=== PATIENT | male | born 1980 | race Caucasian/White ===

== ENCOUNTER 2017-10-29 21:39 | Emergency (ER) | payer OTHER ==
[~2017-10-29] VITALS: Ht 180.3 cm; Wt 77.1 kg
[~2017-10-29 21:39] MED LIST: GABAPENTIN 100100 MG PO; HYDROCODON-ACE1 EAC7 PO; TRAMADOL 50 MG50 MG PO
[2017-10-29] MEDS ORDERED: IBUPROFEN 800800 M1 PO (23:43)
[2017-10-29] MEDS ORDERED: NORCO 5-325 TA1 EACH PO (23:43)
[2017-10-30 00:10] VITALS: BP 112/70
== END 2017-10-30 00:10 | disposition home or self-care (01) ==
LOC: M.ERS 21:39
DX: S20.211A Contusion of right front wall of thorax, initial encounter (principal); M54.2 Cervicalgia; G62.9 Polyneuropathy, unspecified; X50.1XXA Overexertion from prolonged static or awkward postures, initial encounter; Y93.89 Activity, other specified; Y92.89 Other specified places as the place of occurrence of the external cause; Y99.8 Other external cause status

== ENCOUNTER 2018-02-03 19:19 | Inpatient (IN) | payer OTHER ==
[~2018-02-03] VITALS: Ht 180.3 cm; Wt 84.5 kg
--- NOTE | 2018-02-03 | NUR ---
PATIENT ARRIVED TO ICU @ 2305. RECIEVED BEDSIDE REPORT FROM JUANA. PT ABLE TO COMMUNICATE. HAS PERIODS OF BLINKING, STARING INTO SPACE W/ JERKING/TWITCHING MOVEMENTS. NEURO CONSULTED. ORDERS RECIEVED. PT DENIES PAIN. SEIZURE PADS IN PLACE. BED TO LOWEST POSITION. SPOKE WITH JERRY. VOICED UNDERSTANDING NO FURTHER CONCERNS AT THIS TIME. WILL CONTINUE TO MONITOR PT CLOSELY.
[2018-02-03 02:00] VITALS: BP 112/67
[~2018-02-03 19:19] MED LIST changes: +IBUPROFEN 800800 M1 PO; +NORCO 5-325 TA1 EACH PO
[2018-02-03 19:23] VITALS: BP 143/95
[2018-02-03] MEDS ORDERED: NEURONTIN600 MG PO (19:34)
[2018-02-03 19:51] LABS: ABSOLUTE EOSINOPHILS 0.1 thou/uL (0.0-0.7); ABSOLUTE LYMPHOCYTES 2.2 thou/uL (0.8-5.3); ABSOLUTE MONOCYTES 0.7 thou/uL (0.0-1.2); ABSOLUTE NEUTROPHILS 5.9 thou/uL (1.6-8.1); BASOPHILS 0.5 %; EOSINOPHILS 1.2 %; HEMATOCRIT 41.9 % (42.0-52.0); HEMOGLOBIN 14.2 gm/dL (14.0-18.0); LYMPHOCYTES 24.9 %; MCHC 33.9 g/dL (28.0-37.0); MCV 88.5 fL (80.0-100.0); MONOCYTES 7.4 %; MPV 7.7 fl. (7.2-11.1); NUCLEATED RBCS 0 /100WBC; PLATELET COUNT* 253 thou/uL (150-400); RBC 4.73 mil/uL (4.50-6.00); WBC 8.9 thou/uL (4.0-11.0)
[2018-02-03 20:03] LABS: URINE BILIRUBIN NEGATIVE (Negative); URINE BLOOD NEGATIVE (Negative); URINE CLARITY CLEAR; URINE COLOR YELLOW; URINE GLUCOSE-RANDOM NEGATIVE (Negative); URINE KETONES 1+ (Negative); URINE LEUKOCYTES-REFLEX NEGATIVE (Negative); URINE NITRITE-REFLEX NEGATIVE (Negative); URINE PROTEIN NEGATIVE (Negative); URINE UROBILINOGEN 0.2 E.U./dl (0.2-1.0)
[2018-02-03 20:12] LABS: AMP/METHAMP Negative (Negative); BARBITURATES Negative (Negative); BENZODIAZEPINES Negative (Negative); COCAINE Negative (Negative); METHADONE Negative (Negative); OPIATES Negative (Negative); PCP Negative (Negative); THC POSITIVE (Negative)
[2018-02-03 20:21] LABS: ALBUMIN 4.6 g/dL (3.4-5.0); CREATININE 0.9 mg/dL (0.6-1.3); POTASSIUM 3.5 mmol/L (3.5-5.1); TOTAL BILIRUBIN 0.4 mg/dL (<0.1-1.0); TOTAL PROTEIN 7.7 g/dL (6.4-8.2)
[2018-02-03 20:45] VITALS: BP 132/78
[2018-02-03 21:27] VITALS: BP 125/82
[2018-02-03 22:50] VITALS: BP 135/86
[2018-02-03 23:05] VITALS: BP 117/76
[2018-02-04] VITALS (13 sets, daily range): BP systolic 91–117; BP diastolic 48–76
--- NOTE | 2018-02-04 00:03 | NUR ---
RECEIVED REPORT FROM LABEL REWINDER AND ASSUMED CARE OF PATIENT AT 2044. ADMISSION AND ASSESSMENT COMPLETED CHARTED, VSS. PATIENT A&OX4. PATIENT ON ROOM AIR WITH O2 SATS >92%. PATIENT NOTED TO HAVE WHOLE BODY INVOLUNTARY TWITCHES WITH EPISODES OF INABILITY TO COMMUNICATE AND EYES SLIGHTLY ROLLING TO BACK OF HEAD. THESE EPISODES WERE ONLY LASTING A FEW SECONDS BUT OCCURRING LESS THAN A MINUTE APART. DR. LOMAS NOTIFIED AND THIS WAS COMMUNICATED TO HIM. ORDERS RECIEVED FOR NEUROLOGY CONSULT IN AM AND PO LORAZEPAM. ORDERS CLARIFIED AND ENTERED. AFTER PO LORAZEPAM ADMINISTERED, AT 2244 PATIENT BEGAN HAVING A GRAND MAL SEIZURE. RAPID RESPONSE CALLED. PATIENT ROLLED TO HIS SIDE, O2 AT 7L PLACED, AND SUCTION PROVIDED. AIRWAY MAINTAINED DURING SEIZURE LASTING APPROXIMATELY 3 MINUTES LONG. PATIENT POSTICTAL DURING TRANSFER TO ICU, HOWEVER, PATIENT BECAME MORE ALERT AND RESPONSIVE AFTER PATIENT WAS SETTLED IN ICU BED. REPORT GIVEN TO STRING WINDING MACHINE OPERATORDWAYNE.
[2018-02-04 00:33] LABS: CHOLESTEROL 153 mg/dL (<200); HDL CHOLESTEROL 49 mg/dL (>40); LDL CHOLESTEROL 99 mg/dL (<100); TC:HDL 3.1 Ratio (Not establshd); TRIGLYCERIDE 25 mg/dL (<150); VLDL 5 mg/dL (<40)
[2018-02-04 00:36] LABS: SERUM ASSESSMENT CLEAR
[2018-02-04 00:49] LABS: CALCIUM 8.8 mg/dL (8.5-10.1); PHOSPHORUS* 3.2 mg/dL (2.5-4.9)
--- NOTE | 2018-02-04 06:36 | NUR ---
PATIENT PROGRESSING TOWARDS GOALS. NO ACTIVE SEIZURE ACTIVITY AT THIS TIME. VS WNL. ON 2L O2 SAT 100. PT IS COMPLAINING HEADACHE. PAGED ORDERS RECEIVED. SEIZURE PADS IN PLACE. BED TO LOWEST POSITION. NO OTHER COMPLAINS AT THIS TIME. PT HAS SCHEDULED EEG AND MRI OF HEAD W/ OUT CONTRAST THIS A.M.
--- NOTE | 2018-02-04 09:00 | NUR ---
PT TO MRI ACCOMPANIED BY MRI AND NURSING STAFF AT 0900.
[2018-02-04 10:24] LABS: APTT 25.5 Seconds (25.0-31.3); INR 1.1; PROTIME 10.3 Seconds (9.20-11.50)
--- NOTE | 2018-02-04 11:26 | CON ---
[address] [address] CONSULTATION Name: PATRICIO DUFFY Room: [address] IN M.R.#: [id number] Admission: 02/03/18 Attend Phys: Henrry Thakkar, Discharge: Date of : 84 Report #: [id number] THIS REPORT FOR: //name// CC: Gaudencio Thakkar DATE OF SERVICE: 02/04/2018 HISTORY OF PRESENT ILLNESS: This is a 38-year-old male patient who was evaluated by me for seizure. The patient was at home. He was not feeling well. He was feeling dizzy and was having some headache. The was getting ready to take him to the Emergency Room, but then the patient had an episode of syncope where he just fell down and passed out. He was admitted from Emergency Room. I reviewed the patient's Emergency Room draft there and the information I have from that is that the patient states he fainted at 1800. The patient remembers fainting, but does not remember the timing. After he got admitted, he had a grand mal seizure. He said he was having some episode where he was having some speech difficulty, but then he will become better and he does not remember anything about the grand mal seizure. He was given a gram of Keppra and he has not had any further seizure. REVIEW OF SYSTEMS: Indicate that this patient has a history of meningitis. In fact, I had seen this patient the last time he was here in 06/2017 and as my notes indicated, I have recommended that he have a followup with ID as well as a repeat interval spinal tap in few months. He said he did not follow up with anybody. He did not have any symptoms either between June and now. 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 He never was IV drug abuser. He has used some drugs long time ago, but presently he smokes marijuana sometimes, but does not use any drugs. He works and is having some headache now, but he has not had much headache before. He did have a headache the last time he was here. This was the relevant 14-point review of system. PAST MEDICAL HISTORY: Positive for meningitis. FAMILY HISTORY: Negative for any early age stroke. SOCIAL HISTORY: He smokes. PHYSICAL EXAMINATION: Indicate he is alert. He is responsive. He can tell me what month it is, who the president is and what hospital he is in. His cranial nerve examination 2-12 was mostly unremarkable. Neuromuscular examination is mostly unremarkable. When I flex his neck, he does complain of some pain, but he is not a complainer, so he may be underestimating his pain. He has no respiratory difficulty. He [place] [address] CONSULTATION Name: PATRICIO DUFFY Room: [address] IN .R.#: [id number] Admission: 02/03/18 Attend Phys: Henrry Thakkar, Discharge: Date of : 84 Report #: [id number] IMPRESSION: I am concerned with this patient because he had three spinal taps, which is abnormal and in fact his WBC count was the highest in the last spinal tap and now he is having seizure. I believe he needs extensive workup. Unfortunately, he did not follow up as recommended in my last notes when he was here in June and he did not have any outpatient followup with any Infectious Disease or for that matter any clinical consultant, the best I can tell from him. I discussed his options with him. I discussed with him that I would like to do the MRI with and without contrast. This is because the etiology of his symptoms is not clear and I hate to miss a lesion in the posterior fossa, which may be contraindication for spinal tap or any other lesions, which may not show by enhancement. I discussed the potential side effect of contrast with him including the catastrophic dermatological side effect, which are rare, but are untreatable and permanent. His kidney function is normal. He wants to proceed with MRI of the brain with contrast, and we will go ahead and schedule that. I will leave him on [facility]. I consulted ID and I think he needs a repeat spinal tap and addressing his anti-hepatitis C antibodies. We will see what to say and if he has a spinal tap, then we should send an extensive workup including MENDY level even if it is not that accurate. All of it was discussed with the patient in detail and he understands. He understands his options and alternative and he wants to follow the plan. I also discussed with him the importance of compliance and consequences of noncompliance and stressed the importance of following up as recommended as an outpatient. this addendum is added at the time of signing this note. After dictating this note I discussed the patient with ID and subsequently with the nurses and talked to the patient again. ID wanted to proceed with spinal tap and I agreed with that and ordered that. I discussed indication potential complication and alternating of spinal tap with the patient before ordering that. MRI of the brain appear unremarkable. We need to await the results of spinal tap to decide what further treatment need to be done. All of it was discussed with the patient in detail on multiple visits with him. Patient was discussed with night nurse as well as the nurse this morning. More than 70 minutes of time was spent taking care of this patient today and majority of that time was spent counseling the patient and coordinating his care but talking to other health childcare attendant <ELECTRONICALLY SIGNED> By: Omer Mead MD 02/04/18 1126 [id number] [id number] Mead MD /nt
[2018-02-04 11:48] LABS: CSF GLUCOSE 63 mg/dl (40-70); CSF PROTEIN 36.9 mg/dl (15-45)
[2018-02-04 12:44] LABS: CSF CLARITY CLEAR; CSF COLOR COLORLESS; CSF WBC 2 /mm3 (0-10); VOLUME 13 ml
[2018-02-04 12:45] LABS: CSF RBC 64 /mm3
--- NOTE | 2018-02-04 14:47 | EKG ---
[place] [address] ELECTROCARDIOGRAM REPORT Name: PATRICIO DUFFY Room: [address] IN .R.#: [id number] Admission: 02/03/18 Attend Phys: Henrry Thakkar, Discharge: Date of : 84 Report #: [id number] THIS REPORT FOR: //name// [facility] ED Test Date: 2018-02-03 Test Time: 19:39:44 Pat Name: PATRICIO PULIDO Department: Room: Gender: M [employer] Nursery: : [id number] Requested By: Angle Wakefield Order Number: [id number] MD: Jt Willis Measurements Intervals [place] Rate: 73 P: 61 OR: 147 QRS: 37 QRSD: 82 T: 47 QT: 400 QTc: 441 Interpretive Statements Sinus rhythm Consider left ventricular hypertrophy Baseline wander in lead(s) V2,V3,V4,V6 No previous ECG available for comparison Electronically Signed On 02-04-2018 14:47:39 CDT by Jt Willis [email or web address] <ELECTRONICALLY SIGNED> By: Jt Willis MD, [facility] 02/04/18 1447 38 38 Jt Willis MD, [facility] /EPI
--- NOTE | 2018-02-04 19:17 | NUR ---
PT HAD EEG, MRI AND LP TODAY. ASSESSMENT CHARTED. VSS THROUGHOUT THE DAY. PT HAD 2X EMESIS AFTER MRI WITH CONTRAST. HEADACHE PAIN RATED 8/10 RELIEVED WITH PRN HYDROCODONE AND TORODOL. NO OTHER COMPLAINTS OF PAIN THROUGHOUT THE DAY. NO SEIZURE LIKE ACTIVITY REPORTED OR OBSERVED TODAY.
--- NOTE | 2018-02-04 20:09 | NUR ---
ASSUMED CARE OF PT FROM OFELIA BERRIOS. PT IN BED EYES CLOSED. RESPONDS TO VOICE, DROWSY, ORIENTED TO PALCE AND MONTH, CONFUSED ON YEAR. BED RAILS PADDED D/T SEIZURE PRECAUTIONS. IVF INFUSING PIV L AC, MINIMAL PINK LEAKAGE NOTED ON TEGDERM, NON PAINFUL, NON TENDER. PT DENIES ANY HEADACHE AT THIS TIME. EQUAL STRENGTH NOTED BILAT, LUNGS CTA, ON ROOM AIR
[2018-02-05] VITALS: BP 92/52
[2018-02-05 03:42] LABS: HEMATOCRIT 33.7 % (42.0-52.0); MCH 30.2 pg (26.0-34.0); RBC 3.78 mil/uL (4.50-6.00); RDW-CV 13.1 % (10.5-14.5); WBC 4.3 thou/uL (4.0-11.0)
[2018-02-05 03:54] LABS: HEMOGLOBIN 11.4 gm/dL (14.0-18.0)
[2018-02-05 04:11] LABS: CALCIUM 8.3 mg/dL (8.5-10.1); CREATININE 0.8 mg/dL (0.6-1.3); MAGNESIUM 2.2 mg/dL (1.8-2.4); POTASSIUM 3.8 mmol/L (3.5-5.1); TOTAL BILIRUBIN 0.2 mg/dL (<0.1-1.0); TOTAL PROTEIN 5.4 g/dL (6.4-8.2)
--- NOTE | 2018-02-05 05:32 | NUR ---
PT TRANSFERRED UP TO ROOM 205 FROM ICU THIS MORNING AT APPROXIMATELY 0015; VSS, DROWSEY BUT ORIENTED X4, DENIED NEED FOR PAIN MEDICATION. SEIZURE PRECAUTIONS MAINTAINED. HE IS ABLE TO COMMUNICATE HIS NEEDS TO STAFF EFFECTIVELY. HE HAS DENIED THE NEED FOR PAIN MEDICATION UP TO THIS TIME. NUMEROUS LAB RESULTS PENDING RELATED TO ID.
[2018-02-05 08:22] VITALS: BP 114/70
[2018-02-05 11:18] VITALS: BP 113/74
--- NOTE | 2018-02-05 13:57 | NUR ---
Pt is A&O. Resides at home with his and kids. Normally active and independent. No DME. No hx of HH or SNF. Goal is to return home at dc. Following for dc needs.
[2018-02-05 15:24] VITALS: BP 125/72
--- NOTE | 2018-02-05 18:06 | NUR ---
ASSUMED CARE OF PATIENT AFTER REPORT THIS MORNING. PATIENT AWAKE, ALERT, AND ORIENTED APPROPRIATELY. PHYSICAL ASSESSMENT COMPLETED AND CHARTED. COMPLAINS OF PAIN. GIVEN PRN AND SCHEDULED MEDICATIONS, SEE EMAR FOR DOCUMENTATION. VITAL SIGNS STABLE. OXYGEN SATURATION WITHIN NORMAL LIMITS ON ROOM AIR. PATIENT IS STAND BY ASSIST WITH BATHROOM PRIVELEGES. USES CALL LIGHT APPROPRIATELY. SEIZURE PRECAUTIONS IN PLACE. DENIES NEEDS AT THIS TIME. CALL LIGHT WITHIN REACH. NURSING WILL CONTINUE TO MONITOR.
[2018-02-05 20:00] VITALS: BP 124/84
[2018-02-06] VITALS: BP 117/74
[2018-02-06 04:00] VITALS: BP 127/77
[2018-02-06 05:27] LABS: ABSOLUTE EOSINOPHILS 0.2 thou/uL (0.0-0.7); ABSOLUTE LYMPHOCYTES 1.7 thou/uL (0.8-5.3); ABSOLUTE MONOCYTES 0.5 thou/uL (0.0-1.2); ABSOLUTE NEUTROPHILS 3.1 thou/uL (1.6-8.1); BASOPHILS 0.4 %; EOSINOPHILS 3.3 %; HEMATOCRIT 34.7 % (42.0-52.0); HEMOGLOBIN 11.9 gm/dL (14.0-18.0); MCH 30.9 pg (26.0-34.0); MCHC 34.3 g/dL (28.0-37.0); MONOCYTES 8.7 %; MPV 8.5 fl. (7.2-11.1); NUCLEATED RBCS 0 /100WBC; PLATELET COUNT* 201 thou/uL (150-400); POLYS 56.6 %; RBC 3.86 mil/uL (4.50-6.00); RDW-CV 13.2 % (10.5-14.5); WBC 5.4 thou/uL (4.0-11.0)
[2018-02-06 05:44] LABS: ALBUMIN 2.9 g/dL (3.4-5.0); CALCIUM 8.2 mg/dL (8.5-10.1); CREATININE 0.8 mg/dL (0.6-1.3); POTASSIUM 4.2 mmol/L (3.5-5.1); TOTAL BILIRUBIN 0.1 mg/dL (<0.1-1.0); TOTAL PROTEIN 5.7 g/dL (6.4-8.2)
[2018-02-06 08:20] VITALS: BP 123/77
--- NOTE | 2018-02-06 10:19 | NUR ---
Assumed care of patient after report this morning. Patient awake, alert, and oriented appropriately. Physical assessment completed and as charted. Vital signs stable. Oxygen saturation within normal limits on room air. Complained of pain. Given scheduled and PRN medications, see emar for documentation. Patient transfers and ambulates with assistance from or staff. Uses call light appropriately, within reach. Denies needs at this time. Nursing will continue to monitor.
[2018-02-06 11:54] VITALS: BP 123/89
--- NOTE | 2018-02-06 14:26 | NUR ---
RECEIVED ORDERS TO TRANSFER PATIENT TO ROOM 110 ON JOINT & SPINE UNIT. PATIENT NOTIFIED AND COMPLIANT. SALINE LOCKED PER ORDERS AND GIVEN TYLENOL FOR HEADACHE PAIN, SEE EMAR FOR DOCUMENTATION. FINISHING ACYCLOVIR INFUSION THEN WILL TRANSFER PATIENT TO ROOM 110. REPORT GIVEN TO AGUSTINA GREER.
[2018-02-06 15:13] VITALS: BP 118/84
--- NOTE | 2018-02-06 15:14 | NUR ---
PATIENT ADMITTED TO ROOM 110 FROM TELE, PATIENT ALERT/ORIENTED X4, MILD PAIN REPORTED TO NECK RATED AT A 5, PAIN MEDS GIVEN BEFORE COMING TO THIS UNIT. UP WITH ASSIST OF ONE. ORIENTED TO ROOM AND UNIT, CALL LIGHT IN REACH.
--- NOTE | 2018-02-06 15:15 | NUR ---
PATIENT TRANSFERRED TO ROOM 110.
--- NOTE | 2018-02-06 17:46 | CON ---
[address] [address] CONSULTATION Name: PATRICIO DUFFY Room: [address] IN M.R.#: [id number] Admission: 02/03/18 Attend Phys: Henrry Thakkar, Discharge: Date of : 84 Report #: [id number] THIS REPORT FOR: //name// CC: Gaudencio Thakkar TYPE OF REPORT: Infectious diseases consultation. REASON FOR CONSULTATION: I was asked to evaluate the patient concerning headache, altered mental status and seizure. 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 He presented with a 1-day history of malaise, headache, low-grade fever, mild chills, myalgias and arthralgias, neck pain and mild photophobia. 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 As he was preparing to come to the hospital for further evaluation, he had a syncopal episode on the platform of his stairs. His and child noticed no specific injury. He was assisted out to the car and presented to the Emergency Room. He was alert. He then had a tonic-clonic seizure. CT scan showed no acute intracranial changes. He was treated for seizure and admitted to the Intensive Care Unit. He has had no further issues. He remained alert, although is not a perfect historian. I discussed with his who was present in the room. It appears that he was here in May, where he was diagnosed with aseptic meningitis. He did follow up with Neurology in [place] for concern of MS. Mother and sister of MS. She reports that a neurologist felt that this was not currently an active issue. He did improve from his May event. Subsequently, however, the last several months, he has had generalized fatigue, malaise and arthralgias and myalgias, just did not feel well. He has missed several days of work, but no other objective findings noted by his . He has had no trauma. He notes no rhinorrhea issues. He has had his upper teeth extracted this year and now wears dentures. No IV drug use. HIV negative. Hepatitis B negative within this last year. He was hepatitis C antibody positive but hepatitis C viral RNA negative. [place] and has multiple tick exposures. Noted that his CSF for Lyme antibody was just above positive IgM with a negative IgG. He has had no rash. He reports no other GI or complaints. REVIEW OF SYSTEMS: Notes no skin, lymph, cardiopulmonary, GI or issues. ALLERGIES: None. MEDICATIONS: As noted on his OCT. The patient has used marijuana recently. Urine drug screen was otherwise negative. He is now on ceftriaxone, [place] [address] CONSULTATION Name: PATRICIO DUFFY Room: [address] IN ..#: [id number] Admission: 02/03/18 Attend Phys: Henrry Thakkar, Discharge: Date of : 84 Report #: [id number] PAST MEDICAL HISTORY: Hand surgery and meningitis as noted above. FAMILY HISTORY: Noncontributory other than the MS report. SOCIAL HISTORY: Smokes cigarettes and minimal alcohol intake. He reports no previous STDs. He has noticed no ulcerations to his genital region. PHYSICAL EXAMINATION: VITAL SIGNS: Afebrile and hemodynamically stable. GENERAL: He was alert and cooperative. He had some issue remembering some details of his history. He was oriented, otherwise. SKIN: Multiple tattoos. No skin lesions, rash or ticks found. LYMPHATIC: Unremarkable. HEENT: Notable for upper dentures. He did have 2 lacerations to his tongue on each side. NECK: Had 1+ nuchal rigidity. LUNGS: Clear. HEART: Regular, without murmur. ABDOMEN: Soft and nontender, without hepatosplenomegaly or mass. GENITOURINARY: External genitalia, uncircumcised, otherwise unremarkable. Perianal examination unremarkable. EXTREMITIES: Unremarkable. NEUROLOGICAL: Nonfocal. RADIOLOGICAL DATA: CT and MRI scan of the head showed no intracranial abnormalities. He had mild right chronic sinus thickening. Chest x-ray was clear. LABORATORY DATA: CSF examination: Two wbc's, 64 rbc's, glucose 63 and protein 36. Gram stain, no organisms seen. Sodium 140, potassium 3.5, bicarbonate 26 and creatinine 0.9. Liver function test normal. Hemoglobin 14.2; WBC 8.9 with unremarkable differential and platelet count 253,000. Drug screen positive for marijuana. Urinalysis unremarkable. IMPRESSION: A 38-year old with febrile illness associated with headache and now seizure. 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 Although Lyme disease is possible, I would expect some other neurologic changes or MRI scan changes. He has had no Arellano's palsy. There has been no cardiac or joint issues. Also, it was an IgM that was positive from his cerebrospinal fluid and I would expect IgG by that time. This was all in May and will be reevaluated. RECOMMENDATIONS: We will continue with acyclovir and ceftriaxone. I will await [address] [address] CONSULTATION Name: PATRICIO DUFFY Room: [address] ADM IN M.R.#: [id number] Admission: 02/03/18 Attend Phys: Henrry Thakkar, Discharge: Date of : 84 Report #: [id number] CSF studies for culture, bacterial, fungus and AFB as well as herpes simplex PCR and Lyme testing. We will also check LEAH and sedimentation rate. We will see how he does over the next 24-48 hours. Continue empiric therapy with acyclovir and ceftriaxone. I have discussed the case with Neurology and nursing at the bedside. <ELECTRONICALLY SIGNED> By: Sean Sanchez MD 02/06/18 1746 1316 [id number] Sanchez MD /nt
[2018-02-06 19:45] VITALS: BP 132/76
--- NOTE | 2018-02-07 05:07 | NUR ---
PATIENT ALERT AND ORIENTED X 4. VITALS STABLE. RA. SEIZURE PRECAUTIONS IN PLACE. HYDROCODONE GIVEN FOR NECK PAIN, EFFECTIVE. UP SBA TO BATHROOM. SKIN INTACT. SLEPT COMFORTABLY THROUGH THE NIGHT. HOURLY ROUNDS. NURSING WILL CONTINUE TO MONITOR.
[2018-02-07 08:30] VITALS: BP 122/83
[2018-02-07] MEDS ORDERED: GABAPENTIN 100100 MG PO (10:55)
[2018-02-07] MEDS ORDERED: KEPPRA 500 MG500 M1 PO (10:56)
[2018-02-07] MEDS ORDERED: VALTREX1000 MG PO (10:59)
[2018-02-07 11:00] VITALS: BP 122/83
[2018-02-07 12:27] VITALS: BP 122/83
[2018-02-07 12:46] VITALS: BP 122/83
--- NOTE | 2018-02-07 12:59 | NUR ---
SPOKE WITH DR. ORTIZ AND DR. BAZAN OVER THE PHONE. PATIENT OKAY TO DISCHARGE PER DR. ANDERSON AND DR. BAZAN. DR. BAZAN WANTS PATIENT TO GET AN ECHO OUTPATIENT. ORDERS FAXED. DR. BAZAN ALSO WANTS PATIENT TO FOLLOW-UP WITH [facility] FOR A VIDEO EGD. STATED THAT PATIENT NEEDS TO CALL HIM FOR REFERRAL.
--- NOTE | 2018-02-07 13:59 | NUR ---
PATIENT DISCHARGED FROM UNIT AT 1330. ALERT AND ORIENTED X 4. VITAL SIGNS STABLE ON ROOM AIR. AMBULATED IN HALLWAY WITH STAFF WITH NO PROBLEM. IV DISCONTINUED. PAIN BEING MANAGED WITH PO MEDICATION. DENIES NAUSEA. DISCHARGE INSTRUCTIONS, MEDICATION INFORMATION, AND SCRIPTS GIVEN TO PATIENT. LEFT WITH ALL BELONGINGS. PATIENT LEFT WITH VIA CAR.
[2018-02-07 15:00] VITALS: BP 122/83
[2018-02-07 18:11] LABS: HSV 1 DNA Negative (Negative); HSV 2 DNA Negative (Negative)
--- NOTE | 2018-02-12 09:40 | EEG ---
[address] [address] EEG STUDY REPORT Name: PATRICIO DUFFY Room: [address] IN M.R.#: [id number] Admission: 02/03/18 Attend Phys: Henrry Thakkar, Discharge: 02/07/18 Date of : 84 Report #: [id number] THIS REPORT FOR: //name// CC: Gaudencio Thakkar DATE OF SERVICE: 02/04/2018 INDICATION FOR PROCEDURE: This patient is being evaluated for syncope. DESCRIPTION OF PROCEDURE: EEG was done by placing the electrode by standard 10-20 system of electrode placement. Both referential and sequential montages were used for recording. Background activity in this patient's EEG is about 9 Hz and 30 microvolt. The patient went to sleep and that is associated with bilaterally symmetrical sleep spindle and vertex sharp waves. Photic stimulation was unremarkable. No clearcut spike and slow wave activity was noticed but some theta range slowing was noticed in the frontotemporal area. IMPRESSION: This is a borderline electroencephalogram. No definite spike and slow wave activity was noticed but some theta range slowing is loaded in the frontotemporal area. It is difficult to say whether that is because of drowsiness or any pathology. Thank you very much for this referral. <ELECTRONICALLY SIGNED> By: Omer Mead MD 02/12/18 0940 10 MD chester Gimenez
== END 2018-02-07 13:30 | disposition home or self-care (01) | DRG 75 ==
LOC: M.ERS 19:19 → M.2W 20:53 → M.TBA-ER 20:53 → M.2W 21:41 → M.ICU 23:31 → M.2W 02-05 00:45 → M.ORTHSURG 02-06 15:11
PROVIDERS: Internal Medicine; Physician Assistant; Psychiatry & Neurology Neuromuscular Medicine; ADMIT Family Medicine
PROC: B01B1ZZ Fluoroscopy of Spinal Cord using Low Osmolar Contrast (ICD-10-PCS; principal; 2018-02-04)
PROC: 009U3ZX Drainage of Spinal Canal, Percutaneous Approach, Diagnostic (ICD-10-PCS; principal; 2018-02-04)
DX: B00.3 Herpesviral meningitis (principal); R65.11 Systemic inflammatory response syndrome (SIRS) of non-infectious origin with acute organ dysfunction; G93.40 Encephalopathy, unspecified; G62.9 Polyneuropathy, unspecified; F17.210 Nicotine dependence, cigarettes, uncomplicated; F19.90 Other psychoactive substance use, unspecified, uncomplicated; Z84.89 Family history of other specified conditions